=== PATIENT | male | born 1955 | race Caucasian/White ===

== ENCOUNTER 2022-04-09 05:30 | Emergency (ER) | payer OTHER, MEDICARE ==
[~2022-04-09] VITALS: Ht 175.3 cm; Wt 87.8 kg
[2022-04-09] MEDS ORDERED: morphine 4 MG/ML inj SYRINge IV PRN (06:25)
[2022-04-09] MEDS ORDERED: normal saline 1000ML IV soln IVB ONE (06:25)
[2022-04-09] MEDS ORDERED: ondansetron/PF 4mg/2ml inj IV ONE (06:25)
[2022-04-09] MEDS ORDERED: ketorolac trometh. 30mg/ml inj. IV ONE (07:05)
[2022-04-09 07:08] LABS: BASOPHILS % (AUTO) 0 % (0-1); EOSINOPHILS % (AUTO) 0.3 % (0-6); HEMATOCRIT 44.5 % (42.0-52.0); HEMOGLOBIN 14.9 g/dl (14.0-17.9); LYMPHOCYTES # (AUTO) 1.3 X10'3 (1.1-4.8); LYMPHOCYTES % (AUTO) 10.6 % (21-51); MEAN CORPUSCULAR HEMOGLOBIN 30.1 PG (27.0-31.0); MEAN CORPUSCULAR HGB CONC 33.4 g/dL (33.0-36.5); MEAN CORPUSCULAR VOLUME 90.1 FL (78-98); MEAN PLATELET VOLUME 6.9 FL (7.4-10.4); MONOCYTES % (AUTO) 7.8 % (2-12); NEUTROPHILS # (AUTO) 10.1 X10'3 (1.8-7.7); NEUTROPHILS % (AUTO) 81.3 % (42-75); PLATELET COUNT 287 X10'3 (140-440); RED BLOOD COUNT 4.93 X10'6 (4.70-6.10); RED CELL DISTRIBUTION WIDTH 13.8 % (11.5-14.5); WHITE BLOOD COUNT 12.5 X10'3 (4.5-11.0)
[2022-04-09 07:19] LABS: ALANINE AMINOTRANSFERASE 45 U/L (12-78); ALBUMIN 3.5 G/DL (3.4-5.0); ALBUMIN/GLOBULIN RATIO 1.1 (1.1-1.5); ALKALINE PHOSPHATASE 113 IU/L (46-116); ANION GAP 9 (8-16); ASPARTATE AMINO TRANSFERASE 17 U/L (10-37); BILIRUBIN,TOTAL 0.5 MG/DL (0.1-1.0); BLOOD UREA NITROGEN 25 MG/DL (7-18); BUN/CREATININE RATIO 15.5 (5.4-32.0); CALCIUM 8.8 MG/DL (8.5-10.1); CHLORIDE 100 MMOL/L (99-107); CREATININE 1.61 MG/DL (0.60-1.10); GLUCOSE 114 MG/DL (70-104); LIPASE 197 U/L (73-393); POTASSIUM 3.1 MMOL/L (3.5-5.1); SODIUM 138 MMOL/L (135-145); TOTAL CARBON DIOXIDE 29.4 MMOL/L (24-32); TOTAL PROTEIN 6.8 G/DL (6.4-8.2); eGFR 43 ML/MIN
[2022-04-09] MEDS ORDERED: potassium Cl 20 mEq SR tablet PO ONE (07:25)
[2022-04-09] MEDS ORDERED: magnesium 2GM in 50ml NS 50 ML IV SCH (07:25)
[2022-04-09] MEDS ORDERED: ringers solution, lacted 1,000 ML IV ONE (08:25)
[2022-04-09] MEDS ORDERED: HYDR-3965 PO (08:38)
[2022-04-09] MEDS ORDERED: ONDA4TAB12 PO (08:38)
[2022-04-09 08:52] LABS: CLARITY,URINE SLIGHTLY CLOUDY (Clear); GLUCOSE, URINE NEGATIVE (Neg); KETONES,URINE 15 mg/dl (Neg); LEUKOCYTE ESTERASE ,URINE NEGATIVE (Neg); NITRITES, URINE NEGATIVE (Neg); OCCULT BLOOD,URINE LARGE (Neg); PH,URINE 7.5 (4.8-8.0); PROTEIN,URINE NEGATIVE (Neg); UROBILINOGEN,URINE 0.2 E.U/dL (0.2-1.0)
[2022-04-09 08:53] LABS: COLOR,URINE DARK YELLOW (Yellow); UA COLLECTION TYPE NON-SPECIFIED
[2022-04-09 08:59] LABS: RBC,URINE TNTC /HPF (0-2)
[2022-04-09 09:00] LABS: BACTERIA,URINE FEW /HPF (Neg); MUCUS STRANDS NONE SEEN /LPF (Neg); SQUAMOUS EPITHELIAL CELL,UR NONE SEEN /LPF (FEW)
[2022-04-09 09:31] VITALS: BP 149/93
== END 2022-04-09 09:32 | disposition home or self-care (01) ==
LOC: ER 05:31
DX: N20.0 Calculus of kidney (principal); K59.00 Constipation, unspecified; E87.6 Hypokalemia; Z88.5 Allergy status to narcotic agent; Z79.899 Other long term (current) drug therapy
CPT/HCPCS: 36415; 74176; 80053; 81001; 83690; 85025; 87088; 96361; 96365; 96366; 96375; 99285; J1885; J2270; J2405; J3475; J7030; J7120